=== PATIENT | female | born 1975 | race Caucasian/White ===

== ENCOUNTER 2016-09-05 12:02 | Emergency (ER) | payer OTHER ==
[2016-09-05 13:00] LABS: HEMOGLOBIN 14.1 gm/dl (12.3-15.3); RED BLOOD COUNT 4.7 M/UL (4.00-5.10); WHITE BLOOD COUNT 11.3 K/UL (4.5-11.0)
[2016-09-05 13:19] LABS: BUN/CREATININE RATIO 17 (0-10)
== END 2016-09-05 17:15 | disposition home or self-care (01) ==
LOC: ER1 12:02
PROVIDERS: Emergency Medicine
DX: R55 Syncope and collapse (principal)
CPT/HCPCS: 36415; 70450; 71010; 80053; 82550; 82553; 83690; 83874; 84484; 84703; 85025; 93005; 96360; 99284

== ENCOUNTER → 2016-10-09 | Outpatient (CLI) | payer OTHER | LOC: HEART 5 09:30 | DX: R55 Syncope and collapse (principal) | CPT/HCPCS: 93306 ==

== ENCOUNTER → 2016-10-24 | Outpatient (CLI) | payer OTHER | LOC: KOH-I 14:25 | DX: M54.5 Low back pain (principal); M43.17 Spondylolisthesis, lumbosacral region | CPT/HCPCS: 72110 ==

== ENCOUNTER 2020-08-03 09:58 | Observation (INO) | payer OTHER ==
[~2020-08-03] VITALS: Ht 157.5 cm; Wt 77.1 kg
[~2020-08-03 09:58] MED LIST: ALORA1 EAC1 TD; CLEOCIN HCL300 MG PO; CYCLOBENZAPRINE10 MG PO; FLEXERIL 10 MG10 MG PO; IBUPROFEN600 MG PO; IBUPROFEN800 MG PO; KEFLEX CAP 500500 MG PO; MEDROL DOSEPAK 24 MG PO; MEDROL4 MG PO; NAPROSYN500 MG PO; PERCOCET 5/325 T1 EA PO; TYLENOL WITH C1 EACH PO
[2020-08-03 13:51] LABS: HEMOGLOBIN 15.6 gm/dl (12.3-15.3); RED BLOOD COUNT 5.1 M/UL (4.00-5.10); WHITE BLOOD COUNT 8.7 K/UL (4.5-11.0)
[2020-08-03 15:03] LABS: BUN/CREATININE RATIO 11 (0-10)
[2020-08-03] MEDS ORDERED: ALPRAZOLAM1 MG PO (16:05)
[2020-08-03] MEDS ORDERED: ESCITALOPRAM OX20 MG PO (16:06)
[2020-08-03] MEDS ORDERED: DULOXETINE HCL30 MG PO (16:06)
[2020-08-03] MEDS ORDERED: PROGESTERONE200 MG PO (16:07)
[2020-08-03] MEDS ORDERED: QUETIAPINE FUMA50 MG PO (16:07)
[2020-08-03] MEDS ORDERED: LORADAMED10 MG PO (16:08)
[2020-08-03] MEDS ORDERED: VITAMIN D21250 MCG PO (16:08)
[2020-08-04 04:16] LABS: HEMOGLOBIN 13.8 gm/dl (12.3-15.3); WHITE BLOOD COUNT 7.2 K/UL (4.5-11.0)
[2020-08-04 04:31] LABS: RED BLOOD COUNT 4.57 M/UL (4.00-5.10)
[2020-08-04 04:38] LABS: BUN/CREATININE RATIO 13 (0-10)
== END 2020-08-05 11:47 | disposition home or self-care (01) ==
LOC: ER1 09:58 → CDU 15:53 → M/S 15:53
PROVIDERS: Emergency Medicine; Physician Assistant; ADMIT Internal Medicine Infectious Disease
DX: R50.9 Fever, unspecified (principal); M54.5 Low back pain; G89.29 Other chronic pain; M06.9 Rheumatoid arthritis, unspecified; F41.1 Generalized anxiety disorder; F32.9 Major depressive disorder, single episode, unspecified; M79.10 Myalgia, unspecified site; R11.2 Nausea with vomiting, unspecified; K76.0 Fatty (change of) liver, not elsewhere classified; Z20.822 Contact with and (suspected) exposure to COVID-19; Z82.49 Family history of ischemic heart disease and other diseases of the circulatory system; Z88.0 Allergy status to penicillin; Z88.6 Allergy status to analgesic agent; Z79.899 Other long term (current) drug therapy
CPT/HCPCS: 0240U; 36415; 71045; 80048; 80053; 81001; 82550; 82553; 83605; 83874; 84484; 85025; 85652; 86140; 87040; 87086; 90471; 93005; 96365; 96372; 96375; 96376; 99285; G0378; J0696; J1335; J1650; J2270; J2405; J7030; U0003

== ENCOUNTER → 2020-08-17 | Outpatient (CLI) | payer OTHER ==
[~2020-08-17] MED LIST changes: +ALPRAZOLAM1 MG PO; +DULOXETINE HCL30 MG PO; +ESCITALOPRAM OX20 MG PO; +LORADAMED10 MG PO; +PROGESTERONE200 MG PO; +QUETIAPINE FUMA50 MG PO; +VITAMIN D21250 MCG PO
== END ==
LOC: KOH-I 08-15 10:00
DX: M51.26 Other intervertebral disc displacement, lumbar region (principal); M51.34 Other intervertebral disc degeneration, thoracic region; M51.37 Other intervertebral disc degeneration, lumbosacral region; M48.07 Spinal stenosis, lumbosacral region; M43.17 Spondylolisthesis, lumbosacral region; M51.27 Other intervertebral disc displacement, lumbosacral region
CPT/HCPCS: 72148

== ENCOUNTER 2020-10-13 16:03 | Observation (INO) | payer OTHER ==
[~2020-10-13] VITALS: Ht 157.5 cm; Wt 120.7 kg
[2020-10-13 16:45] LABS: HEMOGLOBIN 14.6 gm/dl (12.3-15.3); RED BLOOD COUNT 4.83 M/UL (4.00-5.10); WHITE BLOOD COUNT 14.9 K/UL (4.5-11.0)
[2020-10-13 17:13] LABS: BUN/CREATININE RATIO 13 (0-10)
[2020-10-14 02:31] LABS: WHITE BLOOD COUNT 11.5 K/UL (4.5-11.0)
[2020-10-14 02:32] LABS: RED BLOOD COUNT 4.24 M/UL (4.00-5.10)
[2020-10-14 02:33] LABS: HEMOGLOBIN 12.5 gm/dl (12.3-15.3)
--- NOTE | 2020-10-14 14:35 | NUR ---
PT REF URINALYSIS
== END 2020-10-14 15:38 | disposition home or self-care (01) ==
LOC: ER1 16:03 → CDU 17:50 → M/S 17:50 → CDU 10-14 10:37 → M/S 10-14 15:38
PROVIDERS: Emergency Medicine; ADMIT Internal Medicine
DX: R55 Syncope and collapse (principal); M51.34 Other intervertebral disc degeneration, thoracic region; M51.37 Other intervertebral disc degeneration, lumbosacral region; E66.01 Morbid (severe) obesity due to excess calories; F32.9 Major depressive disorder, single episode, unspecified; M19.90 Unspecified osteoarthritis, unspecified site; R20.0 Anesthesia of skin; D72.829 Elevated white blood cell count, unspecified; Z68.42 Body mass index [BMI] 45.0-49.9, adult; Z88.6 Allergy status to analgesic agent; Z79.899 Other long term (current) drug therapy; Z20.822 Contact with and (suspected) exposure to COVID-19
CPT/HCPCS: ECHO; 36415; 36600; 70450; 70496; 70498; 70551; 71045; 80053; 80061; 82550; 82553; 82803; 83036; 83874; 83880; 84439; 84443; 84484; 85025; 85379; 85610; 85730; 86140; 93005; 93306; 99285; G0378; J1650; Q9967; U0002

== ENCOUNTER 2021-03-15 21:08 | Emergency (ER) | payer MEDICARE, OTHER ==
[2021-03-15 21:26] LABS: HEMOGLOBIN 14.4 gm/dl (12.3-15.3); RED BLOOD COUNT 4.7 M/UL (4.00-5.10); WHITE BLOOD COUNT 19.5 K/UL (4.5-11.0)
[2021-03-15 21:58] LABS: BUN/CREATININE RATIO 10 (0-10)
[2021-03-16] MEDS ORDERED: VISTARIL 50 MG50 MG PO (02:40)
== END 2021-03-16 02:55 | disposition home or self-care (01) ==
LOC: ER1 21:08
PROVIDERS: Physician Assistant
DX: R07.89 Other chest pain (principal); D72.829 Elevated white blood cell count, unspecified; D64.9 Anemia, unspecified; R73.9 Hyperglycemia, unspecified; Z88.6 Allergy status to analgesic agent; Z90.710 Acquired absence of both cervix and uterus
CPT/HCPCS: 71045; 80053; 81001; 82550; 82553; 83690; 83874; 84484; 85025; 85379; 93005; 96374; 99285; J1885; Q0177

== ENCOUNTER → 2021-05-02 | Outpatient (CLI) | payer MEDICARE, OTHER ==
[~2021-05-02] MED LIST changes: +VISTARIL 50 MG50 MG PO
== END ==
LOC: HEART 5 08:00
DX: R55 Syncope and collapse (principal)
CPT/HCPCS: 93306

== ENCOUNTER 2021-09-11 12:02 | Emergency (ER) | payer MEDICARE, OTHER ==
[2021-09-11] MEDS ORDERED: CYCLOBENZAPRINE10 MG PO (15:13)
[2021-09-11] MEDS ORDERED: TORADOL 10 MG T10 MG PO (15:13)
== END 2021-09-11 15:48 | disposition home or self-care (01) ==
LOC: ER1 12:02
DX: M54.41 Lumbago with sciatica, right side (principal); M51.37 Other intervertebral disc degeneration, lumbosacral region
CPT/HCPCS: 72131; 96372; 99283; J1885; J2270

== ENCOUNTER 2021-10-20 18:23 | Emergency (ER) | payer MEDICARE, OTHER ==
[~2021-10-20 18:23] MED LIST changes: +TORADOL 10 MG T10 MG PO
[2021-10-21 00:27] LABS: HEMOGLOBIN 14.4 gm/dl (12.3-15.3); RED BLOOD COUNT 4.78 M/UL (4.00-5.10); WHITE BLOOD COUNT 14.3 K/UL (4.5-11.0)
[2021-10-21 00:45] LABS: BUN/CREATININE RATIO 18 (0-10)
== END 2021-10-21 01:16 | disposition home or self-care (01) ==
LOC: ER1 18:23
PROVIDERS: Student in an Organized Health Care Education/Training Program
DX: M79.672 Pain in left foot (principal); Z88.6 Allergy status to analgesic agent
CPT/HCPCS: 80053; 85025; 85379; 85610; 85730; 99283